=== PATIENT | male | born 1995 | race Two or more races ===

== ENCOUNTER 2020-06-24 23:15 | Inpatient (IN) | payer OTHER ==
[~2020-06-24] VITALS: Ht 172.7 cm; Wt 72.6 kg
== END 2020-06-29 17:57 | disposition designated cancer center or children's hospital (05) | DRG 316 ==
LOC: ER 23:15 → SEC-K 06-25 10:35 → MEDI 06-25 23:44 → MEDJ 06-26 01:48
PROVIDERS: ADMIT Internal Medicine; ATTEND Internal Medicine
PROC: BW2410Z Computerized Tomography (CT Scan) of Chest and Abdomen using Low Osmolar Contrast, Unenhanced and Enhanced (ICD-10-PCS; principal; 2020-06-25)
PROC: B54DZZZ Ultrasonography of Bilateral Lower Extremity Veins (ICD-10-PCS; 2020-06-25)
PROC: 4A12X4Z Monitoring of Cardiac Electrical Activity, External Approach (ICD-10-PCS; 2020-06-26)
DX: I31.9 Disease of pericardium, unspecified (principal); R77.8 Other specified abnormalities of plasma proteins; Z20.822 Contact with and (suspected) exposure to COVID-19

== ENCOUNTER → 2020-06-24 | Emergency (ER) | payer OTHER ==
[~2020-06-24] VITALS: Ht 172.7 cm; Wt 72.6 kg
== END | disposition home or self-care (01) ==
LOC: ER 02:21 → EDBD 02:33 → ER 02:33
DX: I31.9 Disease of pericardium, unspecified (principal); R77.8 Other specified abnormalities of plasma proteins; R10.12 Left upper quadrant pain; R07.89 Other chest pain; Z03.818 Encounter for observation for suspected exposure to other biological agents ruled out